=== PATIENT | female | born 1985 | race American Indian/Alaskan Native ===

== ENCOUNTER 2021-09-28 01:58 | Emergency (ER) | payer SELFPAY ==
[2021-09-28] MEDS ORDERED: predniSONE 20 MG TAB PO ONE (09:29)
[2021-09-28] MEDS ORDERED: KETOROLAC 10 MG TAB PO ONE (09:29)
[2021-09-28 09:52] VITALS: BP 124/78
--- NOTE | 2021-09-28 09:55 | XRay Report ---
CHEST 2 VIEWS INDICATION / CLINICAL INFORMATION: chest pain. COMPARISON: None available. FINDINGS: SUPPORT DEVICES: None. HEART / MEDIASTINUM: No significant abnormality. LUNGS / PLEURA: No significant pulmonary or pleural abnormality. No pneumothorax. ADDITIONAL FINDINGS: No significant additional findings. IMPRESSION: 1. No acute findings. Signer Name: Poonam White MD Signed: 09/28/2021 9:51 AM Workstation Name: [id number]
--- NOTE | 2021-09-28 10:24 | Emergency Department Report ---
ED General Adult HPI - General Chief complaint: Chest Pain Stated complaint: SOB/CHEST PAIN Time Seen by Provider: 09/28/21 09:28 Source: patient Mode of arrival: Ambulatory Limitations: No Limitations - History of Present Illness Initial comments: 35-year-old black female with no past medical history and no family history of CAD presents to the emergency department for evaluation of right chest pain. She states that last night she started to have pain to her right chest, right upper back, right shoulder, and right neck area. She states that pain is 8 out of 10, worse with movement and palpation, and more persistent. She denies shortness of breath, nausea, vomiting, diaphoresis, dizziness, and fever. 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 -: Gradual, days(s) (1) Location: neck, chest (Right side only), back (Right upper), upper extremity (Right shoulder) Radiation: non-radiation Severity scale (0 -10): 4 Quality: aching Consistency: constant Worsens with: movement, other (Working) Associated Symptoms: chest pain. denies: confusion, cough, diaphoresis, fever/chills, headaches, loss of appetite, malaise, nausea/vomiting, rash, seizure, shortness of breath, syncope, weakness Treatments Prior to Arrival: none - Related Data Previous Rx's Medication Instructions Recorded Last Taken Type Ibuprofen [Motrin 600 MG tab] 600 mg PO Q8H PRN #30 tablet 09/28/21 Unknown Rx Prednisone [predniSONE 10 mg 10 mg PO .TAPER #1 pack 09/28/21 Unknown Rx (6-Day Pack, 21 Tabs)] Allergies Allergy/AdvReac Type Severity Reaction Status Date / Time No Known Allergies Allergy Verified 09/28/21 03:26 ED Review of Systems ROS: Stated complaint: SOB/CHEST PAIN Other details as noted in HPI Comment: All other systems reviewed and negative Constitutional: denies: chills, fever ENT: denies: congestion Respiratory: denies: cough, shortness of breath, SOB with exertion, SOB at rest, wheezing Cardiovascular: chest pain. denies: palpitations, dyspnea on exertion, orthopnea, edema, syncope, paroxysmal nocturnal dyspnea Gastrointestinal: denies: abdominal pain, nausea, vomiting, diarrhea, hematemesis, melena, hematochezia Genitourinary: denies: urgency, dysuria, frequency, hematuria, discharge Musculoskeletal: back pain Neurological: denies: headache, weakness, numbness, paresthesias, confusion Psychiatric: anxiety ED Past Medical Hx - Past Medical History Previous Medical History?: No - Surgical History Past Surgical History?: No - Social History Smoking Status: Never Smoker Substance Use Type: None - Medications Home Medications: Home Medications Medication Instructions Recorded Confirmed Last Taken Type Ibuprofen [Motrin 600 MG tab] 600 mg PO Q8H PRN #30 tablet 09/28/21 Unknown Rx Prednisone [predniSONE 10 mg 10 mg PO .TAPER #1 pack 09/28/21 Unknown Rx (6-Day Pack, 21 Tabs)] ED Physical Exam - General Limitations: No Limitations General appearance: alert, in no apparent distress - Head Head exam: Present: atraumatic, normocephalic - Eye Eye exam: Present: normal appearance. Absent: conjunctival injection - Neck Neck exam: Present: normal inspection, tenderness (Right side only). Absent: full ROM, lymphadenopathy - Respiratory Respiratory exam: Present: normal lung sounds bilaterally, chest wall tenderness (Right side only). Absent: respiratory distress, wheezes, rales, rhonchi, stridor - Cardiovascular Cardiovascular Exam: Present: regular rate, normal heart sounds - GI/Abdominal GI/Abdominal exam: Present: soft, normal bowel sounds. Absent: distended, tenderness, guarding, rebound, rigid - Extremities Exam Extremities exam: Present: normal inspection - Expanded Upper Extremity Exam Right Shoulder Exam: Present: normal inspection, tenderness. Absent: full ROM, swelling, abrasion, laceration, ecchymosis, crepidus, dislocation Vascular: Present: normal capillary refill. Absent: vascular compromise, Pallo - Back Exam Back exam: Present: normal inspection, tenderness (Right upper). Absent: CVA tenderness (R), CVA tenderness (L), vertebral tenderness - Neurological Exam Neurological exam: Present: alert, oriented X3, normal gait - Psychiatric Psychiatric exam: Present: normal affect, normal mood - Skin Skin exam: Present: warm, dry, intact, normal color ED Course Vital Signs 09/28/21 09/28/21 03:22 09:49 Temperature 98.7 F Pulse Rate 77 76 Respiratory 12 16 Rate Blood Pressure 117/76 124/78 [Right] O2 Sat by Pulse 100 100 Oximetry - Reevaluation(s) Reevaluation #1: 09/28/21 10:21 Pain improved. ED Medical Decision Making - Radiology Data Radiology results: report reviewed, image reviewed Chest x-ray: FINDINGS: SUPPORT DEVICES: None. HEART / MEDIASTINUM: No significant abnormality. LUNGS / PLEURA: No significant pulmonary or pleural abnormality. No pneumothorax. ADDITIONAL FINDINGS: No significant additional findings. IMPRESSION: 1. No acute findings. - Medical Decision Making 35-year-old black female with no past medical history and no family history of CAD presents to the emergency department for evaluation of right chest pain. S he states that last night she started to have pain to her right chest, right upper back, right shoulder, and right neck area. She states that pain is 8 out of 10, worse with movement and palpation, and more persistent. She denies shortness of breath, nausea, vomiting, diaphoresis, dizziness, and fever. 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 Chest x-ray without any acute abnormalities noted. Examination consistent with musculoskeletal pain only, and pain improved after medication. Patient will be treated with 7-day course of steroids for chest wall tenderness. She is advised to use ibuprofen as needed for pain, take medications as prescribed, and follow-up with primary care provider if no improvement or worsening symptoms. She verbalized understanding of and agreement with plan of care. Critical care attestation.: If time is entered above; I have spent that time in minutes in the direct care of this critically ill patient, excluding procedure time. ED Disposition Clinical Impression: Chest wall tenderness Disposition: HOME / SELF CARE / HOMELESS Is pt being admited?: No Does the pt Need Aspirin: No Condition: Stable Instructions: Chest Wall Pain, [id number] Additional Instructions: Take medications as prescribed. Follow-up with primary care provider if no improvement or worsening symptoms. Prescriptions: Ibuprofen [Motrin 600 MG tab] 600 mg PO Q8H PRN #30 tablet PRN Reason: Pain Prednisone [predniSONE 10 mg (6-Day Pack, 21 Tabs)] 10 mg PO .TAPER #1 pack Referrals: AVI HINSON MD [Referring] - 3-5 Days POPEYE RIDER MD [Staff Physician] - 3-5 Days Time of Disposition: 10:24
--- NOTE | 2021-09-30 14:07 | Electrocardiograph Report ---
[facility] Test Date: 2021-09-28 Test Time: 03:29:15 Pat Name: COLBY CAMPOS Department: Room: Gender: F Case Technician: WILLIAMS : 1985 Requested By: ED DOC Order Number: [id number] Reading MD: Khari Ramos Measurements Intervals [place] Rate: 65 P: 31 FL: 123 QRS: 60 QRSD: 93 T: 40 QT: 414 QTc: 431 Interpretive Statements Sinus rhythm No previous ECG available for comparison Electronically Signed On 09-30-2021 14:07:35 EDT by Khari Ramos
== END 2021-09-28 11:17 | disposition home or self-care (01) ==
LOC: EDBD → ED 01:58
DX: R07.89 Other chest pain (principal)
CPT/HCPCS: 71046; 93005; 99283

== ENCOUNTER 2022-02-08 18:30 | Emergency (ER) | payer MEDICAID, OTHER ==
[2022-02-09] MEDS ORDERED: MAGNESIUM HYDROXIDE (MOM) ORAL LIQD UDC PO ONE (03:36)
[2022-02-09 04:20] LABS: HCG Qualitative,Urine Negative (Negative)
--- NOTE | 2022-02-09 04:52 | XRay Report ---
CHEST 2 VIEWS INDICATION / CLINICAL INFORMATION: chest pain. FINDINGS: SUPPORT DEVICES: None. HEART / MEDIASTINUM: No significant abnormality. LUNGS / PLEURA: No significant pulmonary or pleural abnormality. No pneumothorax. ADDITIONAL FINDINGS: No significant additional findings. IMPRESSION: 1. No acute findings. Signer Name: Gerardo Hurd MD Signed: 02/09/2022 4:48 AM Workstation Name: [id number]
--- NOTE | 2022-02-09 05:21 | Emergency Department Report ---
ED Chest Pain HPI - General Chief Complaint: Upper Respiratory Infection Stated Complaint: CHEST PAIN/BACK PAIN/SOB Time Seen by Provider: 02/09/22 03:31 Source: patient Mode of arrival: Ambulatory Limitations: No Limitations - History of Present Illness Initial Comments: Patient presents complaining of burning pain in her epigastric/lower chest area radiating to her right upper chest intermittently for the last several months. She was seen here for same in November and treated for musculoskeletal pain. She states in the past she has been told that it was GERD so she was on omeprazole for months but she went off of it 5 days ago. She rates the pain 2 out of 10 at the time of my evaluation but 8 out of 10 at its worst. It is not radiate to the arms or back. No shortness of breath nausea vomiting or diaphoresis. No exacerbating or alleviating factors. She tried Tylenol at home with no relief. She states that she was doing her hair when it came on this afternoon/evening and "my anxiety kicked in." She states she sat down and calmed herself down and the anxiety got better but she felt like the pain remained. Denies drug use. Denies tobacco use. No hypercholesterolemia, diabetes, hypertension. Family history negative for PR less than 50 years old. MD Complaint: chest pain (Intermittently for several months) -: month(s) (Several) Onset: other (Wall standing up doing her hair) Pain Location: right chest, epigastric Pain Radiation: other (Right upper chest) Severity: moderate Quality: other (Burning) Consistency: intermittent Improves With: nothing Worsens With: nothing re: denies: nausea, vomting, diaphoresis, dyspnea, sense of impending doom - Related Data Previous Rx's Medication Instructions Recorded Last Taken Type Esomeprazole Magnesium [NexIUM] 20 mg PO QDAY #30 tab 02/09/22 Unknown Rx Allergies Allergy/AdvReac Type Severity Reaction Status Date / Time No Known Allergies Allergy Verified 09/28/21 03:26 Heart Score - HEART Score History: Slightly suspicious EKG: Normal Age: < 45 Risk factors: No known risk factors Troponin: < normal limit HEART Score: 0 - EKG Read Time Time EKG Completed: 05:00 EKG Read Time: 05:10 - Critical Actions Critical Actions: 0-3 pts:0.9-1.7%risk of adverse cardiac event.Candidate for discharge ED Review of Systems ROS: Stated complaint: CHEST PAIN/BACK PAIN/SOB Other details as noted in HPI Comment: All other systems reviewed and negative Constitutional: denies: chills, fever Eyes: denies: vision change ENT: denies: throat pain Respiratory: denies: cough, orthopnea, shortness of breath, SOB with exertion, SOB at rest Cardiovascular: as per HPI, chest pain. denies: orthopnea, edema, syncope, paroxysmal nocturnal dyspnea Endocrine: denies: intolerance to cold, intolerance to heat, unexplained weight gain, unexplained weight loss Gastrointestinal: denies: abdominal pain, nausea, vomiting, diarrhea, constipation Genitourinary: denies: urgency, dysuria, frequency Musculoskeletal: denies: back pain Skin: denies: rash Neurological: denies: headache, numbness, paresthesias Psychiatric: anxiety. denies: depression Hematological/Lymphatic: denies: easy bleeding, easy bruising ED Past Medical Hx - Past Medical History Previous Medical History?: No - Surgical History Past Surgical History?: Yes Additional Surgical History: T&A - Social History Smoking Status: Never Smoker Substance Use Type: None - Medications Home Medications: Home Medications Medication Instructions Recorded Confirmed Last Taken Type Esomeprazole Magnesium [NexIUM] 20 mg PO QDAY #30 tab 02/09/22 Unknown Rx ED Physical Exam - General Limitations: No Limitations General appearance: alert, in no apparent distress - Head Head exam: Present: atraumatic, normocephalic - Eye Eye exam: Present: normal appearance, PERRL, EOMI, conjunctival injection. Absent: scleral icterus - ENT ENT exam: Present: normal exam, mucous membranes moist - Neck Neck exam: Present: normal inspection - Respiratory Respiratory exam: Present: normal lung sounds bilaterally. Absent: respiratory distress, wheezes, rales, rhonchi, chest wall tenderness, accessory muscle use - Cardiovascular Cardiovascular Exam: Present: regular rate, normal rhythm, normal heart sounds - GI/Abdominal GI/Abdominal exam: Present: soft. Absent: distended, tenderness - Extremities Exam Extremities exam: Present: normal inspection - Back Exam Back exam: Present: normal inspection - Neurological Exam Neurological exam: Present: alert, oriented X3, CN II-XII intact - Psychiatric Psychiatric exam: Present: normal affect, normal mood - Skin Skin exam: Present: warm, dry, intact, normal color, rash ED Course Vital Signs 02/08/22 02/09/22 20:23 06:06 Temperature 99.1 F 97.8 F Pulse Rate 64 80 Respiratory 18 15 Rate Blood Pressure 111/70 Blood Pressure 116/70 [Left] O2 Sat by Pulse 100 100 Oximetry - Reevaluation(s) Reevaluation #1: EKG and chest x-ray unremarkable and this 35-year-old female with no risk factors. Improvement with milk of magnesia. Recommend she resume omeprazole and will give her primary care to follow-up with. She does have an [employer] so I discussed with her the need to contact her insurance company for appropriate primary care referral. 02/09/22 05:34 DARRON score - Darron Score Age > 65: (0) No Aspirin use within the Past 7 Days: (0) No 3 or more CAD Risk Factors: (0) No 2 or more Angina events in past 24 hrs: (0) No Known CAD with more than 50% Stenosis: (0) No Elevated Cardiac Markers: (0) No ST Deviation Greater than 0.5mm: (0) No DARRON Score: 0 ED Medical Decision Making - EKG Data Interpretation: normal EKG 02/09/22 05:21 EKG reveals sinus rhythm at 57 bpm without ischemic changes. Prior EKG in November of this year for comparison unchanged. - Radiology Data Radiology results: report reviewed, image reviewed [address] [address] XRay Report Signed Patient: COLBY CAMPOS MR#: [id number] : 1985 Acct:[id number] Age/Sex: 36 / F ADM Date: 02/08/22 Loc: ED Attending Dr: Ordering Physician: MAX ARRIAGA Date of Service: 02/09/22 Procedure(s): XR chest routine 2V Accession Number(s): [id number] cc: MAX ARRIAGA Fluoro Time In Minutes: CHEST 2 VIEWS INDICATION / CLINICAL INFORMATION: chest pain. FINDINGS: SUPPORT DEVICES: None. HEART / MEDIASTINUM: No significant abnormality. LUNGS / PLEURA: No significant pulmonary or pleural abnormality. No pneumothorax. ADDITIONAL FINDINGS: No significant additional findings. IMPRESSION: 1. No acute findings. Signer Name: Gerardo Hurd MD Signed: 02/09/2022 4:48 AM Workstation Name: [email or web address] Transcribed By: BISMARK Dictated By: Gerardo Hurd MD Electronically Authenticated By: Gerardo Hurd MD Signed Date/Time: 02/09/22447 DD/ 7 TD/TT: - Medical Decision Making Appropriate for outpatient follow-up with primary care and possible referral to cardiology. She does need GI follow-up as well as this is likely GERD. We will start her on Nexium as she does not feel omeprazole is helping. - Differential Diagnosis Chest pain. Cardiac versus pulmonary versus gastrointestinal versus anxiet Critical care attestation.: If time is entered above; I have spent that time in minutes in the direct care of this critically ill patient, excluding procedure time. ED Disposition Clinical Impression: Chest pain, History of gastroesophageal reflux (GERD) Disposition: HOME / SELF CARE / HOMELESS Is pt being admited?: No Condition: Stable Instructions: Nonspecific Chest Pain, Adult, Heartburn, [id number] Additional Instructions: We will start her on Nexium. Follow-up with primary care doctor for possible cardiac and GI referrals. E Prescriptions: Esomeprazole Magnesium [NexIUM] 20 mg PO QDAY #30 tab Referrals: PRIMARY CARE, [Primary Care Provider] - 3-5 Days Forms: Work/School Release Form(ED) Time of Disposition: 05:41
[2022-02-09 06:08] VITALS: BP 116/70
--- NOTE | 2022-02-09 09:53 | Electrocardiograph Report ---
[facility] Test Date: 2022-02-09 Test Time: 03:52:02 Pat Name: COLBY CAMPOS Department: Room: Gender: F Claim Clinician: SHERIF : 1985 Requested By: GERMAN TIAN Order Number: [id number] Reading MD: Norm Chavez Measurements Intervals [place] Rate: 57 P: 39 CO: 128 QRS: 52 QRSD: 90 T: 52 QT: 421 QTc: 409 Interpretive Statements Sinus rhythm Nonspecific T wave abnormality Compared to ECG 09/28/2021 03:29:15 No significant changes Electronically Signed On 02-09-2022 9:52:53 EDT by Norm Chavez
== END 2022-02-09 06:09 | disposition home or self-care (01) ==
LOC: ED 18:30
DX: R07.9 Chest pain, unspecified (principal); K21.9 Gastro-esophageal reflux disease without esophagitis
CPT/HCPCS: 71046; 81025; 93005; 99284